=== PATIENT | female | born 1975 | race Caucasian/White ===

== ENCOUNTER 2017-04-10 16:48 | Emergency (ER) | payer OTHER ==
[~2017-04-10] VITALS: Ht 175.3 cm; Wt 77.2 kg
[~2017-04-10 16:48] MED LIST: IBUP-812 PO; ONDA4TAB6 PO; [UNRECOGNIZED DRUG - CODE] PO
[2017-04-10 17:52] LABS: BASOPHILS # (AUTO) 0.2 X10'3 (0-0.2); BASOPHILS % (AUTO) 1.3 % (0-1); EOSINOPHILS # (AUTO) 0.2 X10'3 (0-0.9); EOSINOPHILS % (AUTO) 1.5 % (0-6); HEMATOCRIT 40.5 % (35.0-45.0); HEMOGLOBIN 14.4 g/dl (12.0-16.0); LYMPHOCYTES # (AUTO) 2.6 X10'3 (1.1-4.8); LYMPHOCYTES % (AUTO) 21.6 % (21-51); MEAN CORPUSCULAR HEMOGLOBIN 31.3 PG (27.0-31.0); MEAN CORPUSCULAR HGB CONC 35.4 % (33.0-36.5); MEAN CORPUSCULAR VOLUME 88.5 FL (78-98); MEAN PLATELET VOLUME 7.9 FL (7.4-10.4); MONOCYTES # (AUTO) 0.8 X10'3 (0-0.9); MONOCYTES % (AUTO) 6.7 % (2-12); NEUTROPHILS # (AUTO) 8.4 X10'3 (1.8-7.7); NEUTROPHILS % (AUTO) 68.9 % (42-75); PLATELET COUNT 312 X10'3 (140-440); RED BLOOD COUNT 4.58 X10'6 (4.20-5.60); RED CELL DISTRIBUTION WIDTH 13.7 % (11.5-14.5); WHITE BLOOD COUNT 12.1 X10'3 (4.5-11.0)
[2017-04-10] MEDS ORDERED: NO HOME MEDS (18:09)
[2017-04-10 18:17] LABS: ALANINE AMINOTRANSFERASE 20 U/L (12-78); ALBUMIN 3.8 G/DL (3.4-5.0); ALKALINE PHOSPHATASE 72 IU/L (46-116); ANION GAP 10 (8-16); ASPARTATE AMINO TRANSFERASE 13 U/L (10-37); BILIRUBIN,TOTAL 0.4 MG/DL (0.1-1.0); BLOOD UREA NITROGEN 8 MG/DL (7-18); CALCIUM 8.5 MG/DL (8.5-10.1); CHLORIDE 106 MMOL/L (99-107); CREATININE 0.89 MG/DL (0.40-0.90); ETHANOL < 0.010 GM/DL (0.0-0.010); GLUCOSE 78 MG/DL (70-104); POTASSIUM 3.6 MMOL/L (3.5-5.1); SODIUM 142 MMOL/L (135-145); TOTAL CARBON DIOXIDE 25.7 MMOL/L (24-32); TOTAL PROTEIN 7.7 G/DL (6.4-8.2); eGFR 70 ML/MIN
[2017-04-10 18:20] LABS: ACETAMINOPHEN < 2.0 UG/ML (10-30)
[2017-04-10 19:29] LABS: CLARITY,URINE CLEAR (Clear); COLOR,URINE YELLOW (Yellow); GLUCOSE, URINE NEGATIVE (Neg); KETONES,URINE NEGATIVE (Neg); LEUKOCYTE ESTERASE ,URINE NEGATIVE (Neg); NITRITES, URINE NEGATIVE (Neg); OCCULT BLOOD,URINE SMALL (Neg); PH,URINE 5.5 (4.8-8.0); PROTEIN,URINE NEGATIVE (Neg); UROBILINOGEN,URINE 0.2 E.U/dL (0.2-1.0)
[2017-04-10 19:30] LABS: URINE HCG NEGATIVE (NEG)
[2017-04-10 19:36] LABS: UA COLLECTION TYPE CLN CATCH MIDSTREAM
[2017-04-10 19:37] LABS: MUCUS STRANDS FEW /LPF (Neg); SQUAMOUS EPITHELIAL CELL,UR FEW /LPF (FEW)
[2017-04-10 19:38] LABS: BACTERIA,URINE 1+ /HPF (Neg); RBC,URINE 0-2 /HPF (0-2); WBC,URINE 0-4 /HPF (0-4)
[2017-04-10 19:46] LABS: URINE AMPHETAMINE SCREEN NEGATIVE (Neg); URINE BARBITUATE SCREEN NEGATIVE (Neg); URINE BENZODIAZEPINES SCREEN POSITIVE (Neg); URINE CANNABINOID SCREEN POSITIVE (Neg); URINE COCAINE SCREEN NEGATIVE (Neg); URINE METHADONE SCREEN NEGATIVE (Neg); URINE OPIATE SCREEN NEGATIVE (Neg); URINE PHENCYCLIDINE SCREEN NEGATIVE (Neg)
[2017-04-10 21:31] VITALS: BP 122/75
== END 2017-04-10 21:37 | disposition home or self-care (01) ==
LOC: ER 16:48
DX: T42.4X2A Poisoning by benzodiazepines, intentional self-harm, initial encounter (principal); F32.9 Major depressive disorder, single episode, unspecified; F41.9 Anxiety disorder, unspecified; Y92.89 Other specified places as the place of occurrence of the external cause
CPT/HCPCS: 36415; 80053; 80305; 80320; 80329; 81001; 81025; 84443; 85025; 93005; 99285

== ENCOUNTER 2020-03-11 13:53 | Emergency (ER) | payer OTHER ==
[~2020-03-11] VITALS: Ht 172.7 cm; Wt 83.3 kg
[~2020-03-11 13:53] MED LIST changes: -IBUP-812 PO; +NO HOME MEDS; -ONDA4TAB6 PO; -[UNRECOGNIZED DRUG - CODE] PO
[2020-03-11 14:39] LABS: BASOPHILS # (AUTO) 0.1 X10'3 (0-0.2); EOSINOPHILS # (AUTO) 0.4 X10'3 (0-0.9); EOSINOPHILS % (AUTO) 4.4 % (0-6); HEMATOCRIT 41.1 % (35.0-45.0); HEMOGLOBIN 13.9 g/dl (12.0-16.0); LYMPHOCYTES # (AUTO) 2.3 X10'3 (1.1-4.8); LYMPHOCYTES % (AUTO) 23.5 % (21-51); MEAN CORPUSCULAR HEMOGLOBIN 31.5 PG (27.0-31.0); MEAN CORPUSCULAR HGB CONC 33.8 g/dL (33.0-36.5); MEAN CORPUSCULAR VOLUME 93.1 FL (78-98); MEAN PLATELET VOLUME 8.1 FL (7.4-10.4); MONOCYTES # (AUTO) 0.8 X10'3 (0-0.9); MONOCYTES % (AUTO) 8.2 % (2-12); NEUTROPHILS # (AUTO) 6.2 X10'3 (1.8-7.7); NEUTROPHILS % (AUTO) 62.9 % (42-75); PLATELET COUNT 308 X10'3 (140-440); RED BLOOD COUNT 4.41 X10'6 (4.20-5.60); RED CELL DISTRIBUTION WIDTH 12.9 % (11.5-14.5); WHITE BLOOD COUNT 9.9 X10'3 (4.5-11.0)
[2020-03-11 14:54] LABS: ALANINE AMINOTRANSFERASE 42 U/L (12-78); ALBUMIN 3.8 G/DL (3.4-5.0); ALKALINE PHOSPHATASE 79 IU/L (46-116); ANION GAP 12 (8-16); ASPARTATE AMINO TRANSFERASE 24 U/L (10-37); BILIRUBIN,TOTAL 0.3 MG/DL (0.1-1.0); BLOOD UREA NITROGEN 11 MG/DL (7-18); BUN/CREATININE RATIO 11.2 (6.6-38.0); CALCIUM 8.8 MG/DL (8.5-10.1); CHLORIDE 104 MMOL/L (99-107); CREATININE 0.98 MG/DL (0.40-0.90); ETHANOL < 0.010 GM/DL (0.0-0.010); GLUCOSE 96 MG/DL (70-104); SODIUM 138 MMOL/L (135-145); TOTAL CARBON DIOXIDE 22.4 MMOL/L (24-32); TOTAL PROTEIN 7.8 G/DL (6.4-8.2); eGFR 62 ML/MIN
--- NOTE | 2020-03-11 15:13 | NUR ---
PT ASKING FOR SOMETHING FOR ANXIETY, NOTIFY DR BRADY WHO WILL BE ORDERING SOMETHING.
[2020-03-11] MEDS ORDERED: LORazepam 1 MG tablet PO ONE (15:15)
[2020-03-11] MEDS ORDERED: DOCU250C17 PO (15:23)
[2020-03-11] MEDS ORDERED: QUET25TA34 PO (15:23)
[2020-03-11] MEDS ORDERED: PROP20TA6 PO (15:23)
[2020-03-11] MEDS ORDERED: QUET400T12 PO (15:23)
[2020-03-11] MEDS ORDERED: ALBU8.5H8 INH (15:23)
[2020-03-11] MEDS ORDERED: CALC500T11 PO (15:23)
[2020-03-11] MEDS ORDERED: MIRT-67 PO (15:23)
[2020-03-11] MEDS ORDERED: TRAZ150T78 PO (15:23)
[2020-03-11] MEDS ORDERED: CETI10TA18 PO (15:23)
[2020-03-11] MEDS ORDERED: SERT50TA PO (15:23)
--- NOTE | 2020-03-11 15:26 | NUR ---
PT MEDICATED FOR ANXIETY. PT STATES SHE FEELS LIKE SHE IS SPIRALING AND DOESNT HAVE A PLAN TO HURT HERSELF AT THIS TIME BUT IN THE PAST SHE HAS CUT HERSELF. SHE WAS LIVING IN THE [place] AREA WITH HER SISTER BUT WAS TOLD THAT THEY WANT HER LIVING WITH THEM DUE TO HER MENTAL HEALTH PROBLEMS. PT CAME TO [place] AND IS LIVING WITH HER DAUGHTER. PT STATES SHE SEPERATED FROM HER IN OCT 2018. HER OLDEST DAUGHTER COMMITED SUICIDE IN OCT 2019 IN THE [facility] AREA. THIS HAS BEEN VERY DIFFICULT FOR HER MENTAL HEALTH ISSUES. HER DAUGHTER HAS A SON BAM WHO IS 4 [address]S ARE DECIDING HIS FUTURE. PT'S DAUGHTER WOULD LIKE TO ADOPT HIM.
--- NOTE | 2020-03-11 15:32 | NUR ---
PT ALSO HAS A YOUNGER SON WHO IS 20.
--- NOTE | 2020-03-11 15:34 | NUR ---
THE PHARMACIST IS COMPLETING PT'S MED REC AND THE MEDICATIONS THAT THE PT BROUGHT WITH HER ARE BEING LOGGED AND TAKEN TO PHARMACY.
--- NOTE | 2020-03-11 15:43 | NUR ---
PT AMB TO BATHROOM, GIVEN URINE CUP FOR URINE COLLECTION.
--- NOTE | 2020-03-11 15:58 | NUR ---
URINE OBTAINED, PT IS COOPERATIVE, FEELING BETTER AFTER RECEIVING ATIVAN. PT GIVEN SANDWICH.
[2020-03-11 16:09] LABS: URINE HCG NEGATIVE (NEG)
[2020-03-11 16:15] LABS: URINE AMPHETAMINE SCREEN NEGATIVE (Neg); URINE BARBITUATE SCREEN NEGATIVE (Neg); URINE BENZODIAZEPINES SCREEN NEGATIVE (Neg); URINE CANNABINOID SCREEN POSITIVE (Neg); URINE COCAINE SCREEN NEGATIVE (Neg); URINE METHADONE SCREEN NEGATIVE (Neg); URINE OPIATE SCREEN NEGATIVE (Neg); URINE PHENCYCLIDINE SCREEN NEGATIVE (Neg)
[2020-03-11] MEDS ORDERED: QUEtiapine 25mg tablet PO PRN (16:45)
[2020-03-11] MEDS ORDERED: traZODone 150mg tablet PO PRN (16:45)
[2020-03-11] MEDS ORDERED: albuterol 2.5 MG/3 ML nebule NEB PRN (17:00)
--- NOTE | 2020-03-11 17:03 | NUR ---
Patient sleeping on right side. No distress observed. Continue to monitor.
--- NOTE | 2020-03-11 19:00 | NUR ---
pt is lying in bed quietly, no s/s of distress noted. pt denies complaints at this time.
[2020-03-11] MEDS: docusate sod 250mg capsule PO SCH (20:00)
[2020-03-11] MEDS ORDERED: calcium carbonate 500mg chew tablet PO PRN (20:00)
[2020-03-11] MEDS: mirtazapine 15mg tablet PO SCH (20:05)
[2020-03-11] MEDS: propranolol 10mg tablet PO SCH (20:05)
[2020-03-11] MEDS: quetiapine 100mg tablet PO SCH (20:05)
--- NOTE | 2020-03-11 21:07 | NUR ---
pt is sleeping
--- NOTE | 2020-03-11 22:49 | NUR ---
pt is lying in bed awake. no concerns at this time.
--- NOTE | 2020-03-12 00:26 | NUR ---
pt is sleeping, no s/s of distress noted. rr unlabored.
--- NOTE | 2020-03-12 01:51 | NUR ---
pt continues to sleep, no s/s of distress noted.
--- NOTE | 2020-03-12 04:00 | NUR ---
pt is sleeping, rr unlabored, no s/s of distress noted.
--- NOTE | 2020-03-12 07:33 | NUR ---
Pt awake, calm. RN moved her to another room to adjust appropriately as the unit filled with pt's. Pt was cooperative, but expressed not liking to be "in the middle of all the other people".
[2020-03-12] MEDS ORDERED: loratadine 10mg tablet PO SCH (08:00)
[2020-03-12] MEDS ORDERED: sertraline 50mg tablet PO SCH (08:00)
[2020-03-12] MEDS: docusate sod 250mg capsule PO SCH ×2 (08:00→20:00)
[2020-03-12] MEDS: propranolol 10mg tablet PO SCH ×3 (08:07→20:28)
--- NOTE | 2020-03-12 08:21 | NUR ---
Pt ate breakfast and took am medications
--- NOTE | 2020-03-12 10:23 | NUR ---
Pt became upset due to the restlessness and commotion on the unit of other pts. She began shaking and requested to move. RN and techs assisted to move pt bed to hallway away from others and she was grateful. RN offerred color pages and magazine which she accepted.
--- NOTE | 2020-03-12 11:44 | NUR ---
[facility] flight check pilot here to talk with pt
--- NOTE | 2020-03-12 12:56 | NUR ---
Lunch served at bedside, pt eating.
--- NOTE | 2020-03-12 14:32 | NUR ---
Pt resting in bed. Up to bathroom. [id number] placed per [facility] for SI
--- NOTE | 2020-03-12 15:09 | NUR ---
Pt in bed sobbing, states she "wants to ". RN uses therapeutic listening and requested Ativan order from .
[2020-03-12] MEDS ORDERED: LORazepam 1 MG tablet PO ONE (15:10)
--- NOTE | 2020-03-12 17:08 | NUR ---
Pt resting. Calm.
--- NOTE | 2020-03-12 18:44 | NUR ---
Pt sleeping on her right side, breathing even and unlabored.
--- NOTE | 2020-03-12 19:20 | NUR ---
Assumed patient care. She is sleeping quietly on her left side.
[2020-03-12] MEDS: quetiapine 100mg tablet PO SCH (20:27)
[2020-03-12] MEDS: mirtazapine 15mg tablet PO SCH (20:27)
--- NOTE | 2020-03-12 20:37 | NUR ---
Patient has taken her nightly medications.
--- NOTE | 2020-03-12 21:51 | NUR ---
This patient has been sleeping quietly. Behavioral Health is planning to admit.
[2020-03-12 22:09] VITALS: BP 110/70
== END 2020-03-12 22:14 ==
LOC: ER 13:55
DX: F32.9 Major depressive disorder, single episode, unspecified (principal); F41.9 Anxiety disorder, unspecified; R45.851 Suicidal ideations; Z87.891 Personal history of nicotine dependence; Z72.89 Other problems related to lifestyle; Z79.899 Other long term (current) drug therapy
CPT/HCPCS: 36415; 80053; 80305; 80320; 81025; 84443; 85025; 99285

== ENCOUNTER 2020-04-20 09:25 | Emergency (ER) | payer MEDICAID, OTHER ==
[~2020-04-20] VITALS: Ht 172.7 cm; Wt 81.8 kg
[~2020-04-20 09:25] MED LIST changes: +ALBU8.5H8 INH; +ATI1T PO; +CETI10TA14 PO; +DIVA500T9 PO; +LEVO1TBD13 PO; -NO HOME MEDS; +PROP20TA6 PO; +QUET100T33 PO; +SERT-434 PO; +SERT25TA PO; +TRAZ-256 PO
[2020-04-20] MEDS ORDERED: TRAZ-256 PO (11:54)
[2020-04-20] MEDS ORDERED: PROP20TA6 PO (11:54)
[2020-04-20] MEDS ORDERED: SERT-434 PO (11:54)
[2020-04-20] MEDS ORDERED: DIVA500T9 PO (11:54)
[2020-04-20] MEDS ORDERED: QUET300T19 PO (11:54)
[2020-04-20] MEDS ORDERED: LEVO1TBD13 PO (11:54)
[2020-04-20] MEDS ORDERED: ATI1T PO (11:54)
[2020-04-20] MEDS ORDERED: CETI10TA14 PO (11:54)
[2020-04-20 12:29] VITALS: BP 142/90
== END 2020-04-20 12:30 | disposition home or self-care (01) ==
LOC: ER 09:26
DX: F41.9 Anxiety disorder, unspecified (principal); F31.9 Bipolar disorder, unspecified; Z76.0 Encounter for issue of repeat prescription; Z72.89 Other problems related to lifestyle; Z79.899 Other long term (current) drug therapy
CPT/HCPCS: 99283